=== PATIENT | female | born 1950 ===

== ENCOUNTER 2017-05-13 10:11 | Outpatient (CLI) | payer OTHER | END 2017-05-13 12:11 | disposition home or self-care (01) | LOC: SONOGRAMA 10:11 | DX: M25.512 Pain in left shoulder (principal) ==

== ENCOUNTER 2017-05-16 09:18 | Outpatient (CLI) | payer OTHER | END 2017-05-16 09:32 | disposition home or self-care (01) | LOC: LAB 09:18 | DX: R71.8 Other abnormality of red blood cells (principal) ==